=== PATIENT | male | born 1995 | race Caucasian/White ===

== ENCOUNTER 2021-05-23 14:20 | Emergency (ER) | payer OTHER ==
[2021-05-23 14:25] VITALS: BP 131/89; PULSE 104; TEMP 99.2; BMI 37.9
[2021-05-23] MEDS ORDERED: KETOROLAC TROMETHAMINE 30 MG/1 ML VIAL IM ONE (15:25)
[2021-05-23] MEDS ORDERED: KETOROLAC TROMETHAMINE 30 MG/1 ML VIAL ONE (16:17)
== END 2021-05-23 14:35 | disposition left against medical advice (07) ==
LOC: JER 14:20
PROC: 3E0233Z Introduction of Anti-inflammatory into Muscle, Percutaneous Approach (ICD-10-PCS; principal; 2021-05-23)
DX: K80.50 Calculus of bile duct without cholangitis or cholecystitis without obstruction (principal)
CPT/HCPCS: 99284-25

== ENCOUNTER 2024-01-11 09:02 | Emergency (ER) | payer OTHER ==
[2024-01-11 09:15] VITALS: BP 117/72; PULSE 86; RESP 20; TEMP 98.3; BMI 37.1
== END 2024-01-11 11:01 | disposition home or self-care (01) ==
LOC: JERFT 09:02
DX: K62.89 Other specified diseases of anus and rectum (principal)
CPT/HCPCS: 99283-25

== ENCOUNTER 2025-02-03 20:09 | Emergency (ER) | payer OTHER ==
[2025-02-03 20:14] VITALS: TEMP 98; BMI 40.3
[2025-02-03 22:09] LABS: MCHC 32.9 g/dl (32.3-36.5); MEAN CELL VOLUME 91.2 fl (79.0-92.2); MEAN PLT VOLUME 9.6 fl (9.4-12.4); RDW 13.2 % (11.9-15.3)
[2025-02-03 22:20] LABS: INR 1.01 (0.83-1.09); PROTHROMBIN TIME (PATIENT) 11.1 SEC (9.7-13.0)
[2025-02-03 22:34] LABS: GLUCOSE,RANDOM 94.0 mg/dL (74-106); TOT PROT 7.7 g/dl (6.4-8.2)
[2025-02-03 22:35] LABS: CO2 24.0 mmol/L (21-32)
[2025-02-03] MEDS: SODIUM CHLORIDE 0.9% 500 ML INFUS.BAG IV ONE (22:35)
[2025-02-03 22:37] LABS: ALK PHOS 71.0 U/L (40-150)
[2025-02-03 22:39] LABS: CREATININE 0.69 mg/dL (0.55-1.3); SGOT/AST 36.0 U/L (5-34); SGPT/ALT 56.0 U/L (0-55)
[2025-02-03 23:02] LABS: HCV DIAGNOSTIC IN-HOUSE W/RFLX NON-REACTIVE (NONREACTIVE)
[2025-02-03 23:03] LABS: HIV INTERPRETATION NEGATIVE (NEGATIVE)
[2025-02-03 23:35] LABS: URINE APPEARANCE CLEAR; URINE BILIRUBIN NEGATIVE (NEGATIVE); URINE COLOR YELLOW; URINE GLUCOSE (UA) NEGATIVE (NEGATIVE); URINE KETONE NEGATIVE (NEGATIVE); URINE LEUK ESTERASE NEGATIVE (NEGATIVE); URINE NITRITE NEGATIVE (NEGATIVE); URINE PROTEIN NEGATIVE (NEGATIVE); URINE UROBILINOGEN 1.0 mg/dL (0.2-1.0)
[2025-02-04 00:15] VITALS: BP 127/80; PULSE 85; RESP 19
== END 2025-02-04 00:16 | disposition home or self-care (01) ==
LOC: JER 20:09
DX: R19.7 Diarrhea, unspecified (principal); R10.31 Right lower quadrant pain
CPT/HCPCS: 36415; 74177-TC; 80053; 81003; 85025; 85610; 86803; 86850; 86900; 86901; 87086; 87389; 99285-25